=== PATIENT | female | born 1980 | race Caucasian/White ===

== ENCOUNTER 2017-11-14 14:20 | Outpatient (RCR) | payer MEDICAID | END 2017-12-07 | LOC: M OUTALCOH 14:20 | DX: F11.20 Opioid dependence, uncomplicated (principal); F17.200 Nicotine dependence, unspecified, uncomplicated; F15.20 Other stimulant dependence, uncomplicated ==

== ENCOUNTER 2017-12-25 10:00 | Outpatient (RCR) | payer MEDICAID | END 2018-01-07 | LOC: M OUTALCOH 12-30 10:00 | DX: F11.20 Opioid dependence, uncomplicated (principal); F17.200 Nicotine dependence, unspecified, uncomplicated; F15.20 Other stimulant dependence, uncomplicated ==

== ENCOUNTER 2018-01-08 08:17 | Outpatient (RCR) | payer MEDICAID | END 2018-02-06 | LOC: M OUTALCOH 08:17 | DX: F11.20 Opioid dependence, uncomplicated (principal); F17.200 Nicotine dependence, unspecified, uncomplicated; F15.20 Other stimulant dependence, uncomplicated ==

== ENCOUNTER 2018-02-17 08:00 | Outpatient (RCR) | payer MEDICAID | END 2018-03-09 | LOC: M OUTALCOH 08:00 | PROVIDERS: ATTEND Psychiatry & Neurology Psychiatry | DX: F11.20 Opioid dependence, uncomplicated (principal); F15.20 Other stimulant dependence, uncomplicated; F17.200 Nicotine dependence, unspecified, uncomplicated ==

== ENCOUNTER 2018-04-06 14:00 | Outpatient (RCR) | payer MEDICAID | END 2018-04-09 | LOC: M OUTALCOH 14:00 | PROVIDERS: ATTEND Psychiatry & Neurology Psychiatry | DX: F11.20 Opioid dependence, uncomplicated (principal); F15.20 Other stimulant dependence, uncomplicated; F17.200 Nicotine dependence, unspecified, uncomplicated ==

== ENCOUNTER → 2018-04-10 | Outpatient (CLI) | payer MEDICAID | LOC: M WUC 08:00 | PROVIDERS: ATTEND Physician Assistant | DX: Z02.1 Encounter for pre-employment examination (principal); Z53.9 Procedure and treatment not carried out, unspecified reason ==

== ENCOUNTER 2018-04-27 15:00 | Outpatient (RCR) | payer MEDICAID | END 2018-05-07 | LOC: M OUTALCOH 15:00 | PROVIDERS: ATTEND Psychiatry & Neurology Psychiatry | DX: F11.20 Opioid dependence, uncomplicated (principal); F15.20 Other stimulant dependence, uncomplicated; F17.200 Nicotine dependence, unspecified, uncomplicated ==

== ENCOUNTER 2018-06-02 16:00 | Outpatient (RCR) | payer MEDICAID | END 2018-06-07 | LOC: M OUTALCOH 16:00 | PROVIDERS: ATTEND Psychiatry & Neurology Psychiatry | DX: F11.20 Opioid dependence, uncomplicated (principal); F15.20 Other stimulant dependence, uncomplicated; F17.200 Nicotine dependence, unspecified, uncomplicated ==

== ENCOUNTER → 2018-07-07 | Outpatient (RCR) | payer MEDICAID | LOC: M OUTALCOH 06-08 10:20 | PROVIDERS: ATTEND Psychiatry & Neurology Psychiatry | DX: F11.20 Opioid dependence, uncomplicated (principal); F17.200 Nicotine dependence, unspecified, uncomplicated; F15.20 Other stimulant dependence, uncomplicated ==

== ENCOUNTER 2024-05-16 22:20 | Inpatient (IN) | payer MEDICAID, OTHER ==
[~2024-05-16] VITALS: Ht 165.1 cm; Wt 71.3 kg
[~2024-05-16 22:20] MED LIST: PRENTAB9 PO; SUBO8MIS SL
[2024-05-17] MEDS: CEFTAROLINE FOSAMIL 600 MG in DEXTROSE 5% (D5W) ADV/MINI-BAG 50 ML IV ONE (00:06)
[2024-05-17 00:26] LABS: BLOOD UREA NITROGEN 12 MG/DL (9-23); CALCIUM LEVEL 9.3 MG/DL (8.5-10.1); CARBON DIOXIDE LEVEL 28 MMOL/L (20-31); CHLORIDE LEVEL 103 MMOL/L (98-107); CREATININE FOR GFR 0.72 MG/DL (0.55-1.30); GLOMERULAR FILTRATION RATE > 60.0 (>58); GLUCOSE, FASTING 100 MG/DL (60-100); POTASSIUM SERUM 3.9 MMOL/L (3.5-5.1); SODIUM LEVEL 140 MMOL/L (136-145)
[2024-05-17 00:27] LABS: BASO # 0.1 10^3/uL (0.0-0.2); BASO % 0.2 % (0.0-1.0); EOS # 0.1 10^3/uL (0.0-0.5); EOS % 0.6 % (0.0-3.0); HEMATOCRIT 39.8 % (36.0-47.0); LYMPH # 1.8 10^3/uL (1.5-5.0); LYMPH % 8.6 % (24.0-44.0); MEAN CORPUSCULAR HEMOGLOBIN 28.3 pg (27.0-33.0); MEAN CORPUSCULAR HGB CONC 32.7 g/dl (32.0-36.5); MEAN CORPUSCULAR VOLUME 86.5 fl (80.0-96.0); MONO # 1.1 10^3/uL (0.0-0.8); MONO % 5.3 % (2.0-8.0); NEUTROPHILS # 17.5 10^3/uL (1.5-8.5); NEUTROPHILS % 84.3 % (36.0-66.0); PLATELET COUNT, AUTOMATED 244 10^3/uL (150-450); WHITE BLOOD COUNT 20.8 10^3/uL (4.0-10.0)
[2024-05-17 00:33] LABS: PROCALCITONIN 4.11 ng/ml
[2024-05-17 00:39] LABS: C REACTIVE PROTEIN QUANTITATIV 31.96 MG/DL (<1.0)
[2024-05-17 02:08] LABS: ERYTHROCYTE SEDIMENTATION RATE 93 mm/hr (0-20)
[2024-05-17] MEDS ORDERED: MOM 30ML SUSPENSION UDC PO PRN (02:20)
[2024-05-17] MEDS ORDERED: NAPR-849 PO (02:20)
[2024-05-17] MEDS ORDERED: HOME MED LIST COMPLETE! XX SCH (02:20)
[2024-05-17] MEDS ORDERED: LORazepam 2 MG/ML 1ML VIAL IM PRN (02:20)
[2024-05-17] MEDS ORDERED: ACET1TAB55 PO (02:20)
[2024-05-17] MEDS ORDERED: ACETAMINOPHEN 325 MG TAB PO PRN (02:20)
[2024-05-17] MEDS ORDERED: IBUP200C28 PO (02:20)
[2024-05-17] MEDS ORDERED: LORazepam 2 MG TAB PO PRN (02:30)
[2024-05-17] MEDS: PIPERACILLIN/TAZOBACTAM SOD 4.5 GM in DEXTROSE 5% (D5W) ADV/MINI-BAG 50 ML IV SCH (03:31)
[2024-05-17] MEDS: NICOTINE 14 MG/24 HR TRANSDERMAL TD SCH (04:00)
[2024-05-17] MEDS: VANCOMYCIN HCL 1,500 MG, VIAL MATE ADAPTER 1 EACH in NS 500 ML IV ONE (04:40)
[2024-05-17 06:42] LABS: ALBUMIN 2.3 G/DL (3.2-5.2); ALKALINE PHOSPHATASE 113 U/L (35-104); ALT/SGPT 32 U/L (7.0-40); AST/SGOT 21 U/L (<34); BILIRUBIN,TOTAL 0.4 MG/DL (0.3-1.2); BLOOD UREA NITROGEN 12 MG/DL (9-23); CALCIUM LEVEL 8.4 MG/DL (8.5-10.1); CARBON DIOXIDE LEVEL 24 MMOL/L (20-31); CHLORIDE LEVEL 106 MMOL/L (98-107); CREATININE FOR GFR 0.66 MG/DL (0.55-1.30); GLOMERULAR FILTRATION RATE > 60.0 (>58); GLUCOSE, FASTING 98 MG/DL (60-100); POTASSIUM SERUM 3.7 MMOL/L (3.5-5.1); SODIUM LEVEL 140 MMOL/L (136-145); TOTAL PROTEIN 5.7 G/DL (5.7-8.2)
[2024-05-17] MEDS: NS (Normal Saline) 0.9% 1,000 ML IV ONE ×2 (06:50→11:05)
[2024-05-17 09:39] VITALS: BP 96/61; TEMP 98; O2SAT 99
[2024-05-17] MEDS: NS (Normal Saline) 0.9% 1,000 ML IV SCH (09:56)
[2024-05-17] MEDS: BUPRENORPHINE/NALOXONE 2-0.5MG SUBLINGUAL TABLET(SUBOXONE) SL SCH (09:56)
[2024-05-17] MEDS: KETOROLAC 30 MG/ML 1ML VIAL IV PRN (11:05)
[2024-05-17] MEDS ORDERED: CLOTRIMAZOLE 1% VAG CR 45 GM TOP SCH (11:40)
[2024-05-17 12:00] VITALS: BP 91/53; TEMP 98.6; O2SAT 97
[2024-05-17] MEDS: FLUCONAZOLE 100 MG TAB PO ONE (13:49)
[2024-05-17] MEDS: VANCOMYCIN HCL 1,000 MG, VIAL MATE ADAPTER 1 EACH in NS 250 ML IV SCH (13:49)
[2024-05-17] MEDS ORDERED: VANCOMYCIN HCL 1,000 MG, VIAL MATE ADAPTER 1 EACH in NS 250 ML IV SCH (16:00)
[2024-05-18] MEDS ORDERED: FLUZONE VACCINE TRIVALENT PF(2024-25) 0.5ML SYRINGE IM.IMMUN ONE (09:00)
== END 2024-05-17 15:33 | disposition left against medical advice (07) | DRG 720 ==
LOC: M ED 22:20 → M ED INP 05-17 02:19 → M MS4PR 05-17 09:39
PROVIDERS: ADMIT Student in an Organized Health Care Education/Training Program; ATTEND Student in an Organized Health Care Education/Training Program
DX: A41.9 Sepsis, unspecified organism (principal); L03.116 Cellulitis of left lower limb; Z90.49 Acquired absence of other specified parts of digestive tract; F17.200 Nicotine dependence, unspecified, uncomplicated; Z79.899 Other long term (current) drug therapy; M65.972 Unspecified synovitis and tenosynovitis, left ankle and foot; L02.612 Cutaneous abscess of left foot; M86.8X7 Other osteomyelitis, ankle and foot

== ENCOUNTER → 2025-01-11 | Outpatient (RCR) ==
[~2025-01-11] MED LIST changes: +ACET1TAB55 PO; +IBUP200C28 PO; +NAPR-849 PO
== END ==
LOC: M EMPSSV 12-16 14:20
PROVIDERS: ATTEND Family Medicine
DX: Z20.828 Contact with and (suspected) exposure to other viral communicable diseases (principal)